=== PATIENT | male | born 2000 | race Caucasian/White ===

== ENCOUNTER 2018-08-20 08:15 | Outpatient (CLI) | payer OTHER ==
--- NOTE | 2018-08-20 11:08 | RAD ---
Arthrogram left shoulder HISTORY: Internal derangement. FINDINGS: After explaining the procedure and answering all questions, the anterior aspect of left estela toribio was prepped and draped in usual sterile fashion. Sterile technique, buffered local anesthesia, fluoroscopic guidance, and an anterior approach were used to carefully advance a 22-gauge spinal needle to the joint capsule at the level of the humeral head. Total volume of 10 cc liquid mixture containing normal saline, 1% lidocaine, iodinated contrast, and small amounts of gadolinium a nd epinephrine were then instilled into the joint capsule under fluoroscopic control. Contrast remained within the joint capsule. Needle was removed. Patient tolerated the procedure well and was t ransferred to MRI in good condition for further imaging. IMPRESSION: Successful left shoulder arthrogram. MRI is pending
--- NOTE | 2018-08-20 12:17 | MRI ---
MR ARTHROGRAM LEFT SHOULDER: DATE: 08/20/2018. PROVIDED CLINICAL HISTORY: Left shoulder pain. FINDINGS: The components of the rotator cuff appear intact. The long head biceps tendon appears intact and nor tamanna located. The glenoid labrum and glenohumeral articular cartilage demonstrate a normal MR appearance. There is mild capsular thickening posterior-inferiorly. There is no evidence for pericapsular edema. There is contrast containing fluid present within the subacromial subdeltoid bursa which is likely on an iatrogenic basis. No focal concerning regional marrow or muscular signal abnormality is evident. IMPRESSION: No evidence for rotator cuff or glenoid labral tear. POS: C
== END 2018-08-20 08:16 | disposition home or self-care (01) ==
LOC: RAD 08:15
PROVIDERS: ATTEND Orthopaedic Surgery
DX: M25.512 Pain in left shoulder (principal)
CPT/HCPCS: 23350